=== PATIENT | female | born 1975 | race Two or more races ===

== ENCOUNTER → 2021-06-06 | Outpatient (CLI) | payer OTHER | END | disposition home or self-care (01) | LOC: PPH VACUNA 09:40 | PROVIDERS: ATTEND Emergency Medicine Pediatric Emergency Medicine | DX: Z23 Encounter for immunization (principal) ==

== ENCOUNTER 2021-09-26 14:23 | Emergency (ER) | payer OTHER ==
[~2021-09-26] VITALS: Ht 154.9 cm; Wt 90.7 kg
[2021-09-26] MEDS ORDERED: HUMULIN R500 UNIT/1 SQ (14:38)
[2021-09-26] MEDS ORDERED: PHENTERMINE H37.5 M1 PO (14:40)
== END 2021-09-26 17:50 | disposition home or self-care (01) ==
LOC: ER 14:23
DX: I10 Essential (primary) hypertension (principal); F06.4 Anxiety disorder due to known physiological condition; Z11.52 Encounter for screening for COVID-19